=== PATIENT | male | born 1955 | race Caucasian/White ===

== ENCOUNTER → 2016-08-05 | Outpatient (CLI) | payer OTHER ==
[2016-08-05 13:22] LABS: HEMOGLOBIN 14.4 g/dL (14.1-18.0); LYMPH # 3.5 K/mm3 (0.7-4.5); LYMPH % 22.8 % (10-50)
[2016-08-05 13:24] LABS: BUN 15 mg/dL (7-18); GFR (ESTIMATED) 77 ML/MIN (>60)
[2016-08-05 15:28] LABS: NEUTROPHILS 64 % (42-76)
[2016-08-07 08:45] LABS: Folate (Folic Acid) 2.4 ng/mL (>3.0)
== END ==
LOC: CARL-LAB 10:40
PROVIDERS: Nurse Practitioner Family
DX: D64.9 Anemia, unspecified (principal); E78.5 Hyperlipidemia, unspecified; I10 Essential (primary) hypertension